=== PATIENT | male | born 1975 | race Caucasian/White ===

== ENCOUNTER 2019-02-08 10:01 | Emergency (ER) | payer MEDICAID ==
[2019-02-08 13:45] LABS: ADD MAN DIFF? NO
[2019-02-08] MEDS ORDERED: NITROGLYCERIN (SL) 0.4 MG TAB (13:45)
[2019-02-08] MEDS: ASPIRIN 325 MG TAB PO (13:49)
[2019-02-08] MEDS: NITROGLYCERIN (SL) 0.4 MG TAB SL (13:50)
[2019-02-08 13:52] LABS: WHITE BLOOD COUNT 6.2 10^3/ul (4.8-10.8)
[2019-02-08 13:52] LABS: BASOPHILS % 0.3 % (0.0-2.0); EOSINOPHILS # 0.2 10^3/ul (0.0-0.5); EOSINOPHILS % 2.6 % (0.0-7.0); HEMATOCRIT 39.4 % (42.0-52.0); HEMOGLOBIN 14.2 g/dl (14.0-18.0); LYMPHOCYTES # 1.7 10^3/ul (0.8-2.9); MEAN CORPUSCULAR HEMOGLOBIN 31.3 pg (29.0-33.0); MEAN PLATELET VOLUME 12.5 fl (7.4-10.4); MONOCYTE # 0.6 10^3/ul (0.3-0.9); MONOCYTES % 9.2 % (0.0-11.0); NEUTROPHIL # 3.7 10^3/ul (1.6-7.5); NEUTROPHILS % 59.6 % (39.0-77.0); PLATELET COUNT 186 10^3/UL (140-415); RED BLOOD COUNT 4.53 10^6/ul (4.70-6.10); RED CELL DISTRIBUTION WIDTH 12.7 % (11.5-14.5)
[2019-02-08 14:08] LABS: ANION GAP 12 (5-13); BLOOD UREA NITROGEN 19 mg/dl (7-20); CALCIUM 9.5 mg/dl (8.4-10.2); CARBON DIOXIDE 23 mmol/L (21-31); CHLORIDE 109 mmol/L (97-110); CREATININE 1.07 mg/dl (0.61-1.24); Estimated GFR > 60 mL/min (>60); GLUCOSE 90 mg/dl (70-220); POTASSIUM 4.1 mmol/L (3.5-5.1); SODIUM 144 mmol/L (135-144)
[2019-02-08 14:19] LABS: TROPONIN-I < 0.012 ng/ml (0.000-0.120)
[2019-02-08 18:59] LABS: TROPONIN-I < 0.012 ng/ml (0.000-0.120)
[2019-02-08 19:56] LABS: CREATINE KINASE 635 IU/L (23-200)
[2019-02-08 20:14] LABS: CK-MB 2.84 ng/ml (0.0-2.4)
== END 2019-02-08 19:43 | disposition home or self-care (01) ==
LOC: E/R 10:01
DX: R07.9 Chest pain, unspecified (principal); F41.9 Anxiety disorder, unspecified
CPT/HCPCS: 36415; 71045; 80048; 82550; 82553; 84484; 85025; 85378; 93005; 99285-25